=== PATIENT | female | born 1990 | race African-American/Black ===

== ENCOUNTER 2017-04-28 17:46 | Emergency (ER) | payer MEDICAID ==
[~2017-04-28] VITALS: Ht 154.9 cm; Wt 59.9 kg
[~2017-04-28 17:46] MED LIST: PREN-385 PO
[2017-04-28 18:05] VITALS: BP 115/78
--- NOTE | 2017-04-28 18:12 | NUR ---
Patient to bed 01.
--- NOTE | 2017-04-28 18:20 | NUR ---
PT PRESENTS TO ER FOR EVALUATION OF VAGINAL BLEEDING DURING . LMP 02/26/17, EDC 12/03/17; DENIES N/V/D; SKIN IS PINK/WARM/DRY; AAOX4 WITH EVEN AND STEADY GAIT; LUNGS CLEAR BL; HR EVEN AND REGULAR; PT DENIES ANY FEVER, CP, SOB, OR COUGH AT THIS TIME; PATIENT STATES PAIN OF 0/10 AT THIS TIME; VSS; PATIENT POSITIONED FOR COMFORT; HOB ELEVATED; BEDRAILS UP X2; BED DOWN. ER MD MADE AWARE OF PT STATUS.
[2017-04-28 18:52] LABS: APPEARANCE,URINE CLEAR (CLEAR); BILIRUBIN,URINE NEGATIVE (NEGATIVE); BLOOD, URINE NEGATIVE (NEGATIVE); COLOR,URINE YELLOW (YELLOW); LEUKOCYTE ESTERASE ,URINE NEGATIVE (NEGATIVE); NITRITE, URINE NEGATIVE (NEGATIVE); PH,URINE 6.5 (5.0-9.0); UGLUCOSE NEGATIVE (NEGATIVE)
[2017-04-28 18:59] LABS: ANION GAP 9.7 (8-16); CARBON DIOXIDE 29.6 mmol/L (21-32); CREATININE 0.8 mg/dL (0.6-1.3); POTASSIUM 3.3 mmol/L (3.5-5.1)
[2017-04-28 19:04] LABS: ALBUMIN 3.8 g/dL (3.4-5.0); BASOPHILS # (AUTO) 0.2 K/uL (0.00-0.22); EOSINOPHILS # (AUTO) 0.1 K/uL (0-0.4); HEMATOCRIT 37.5 % (36-48); HEMOGLOBIN 12.4 g/dL (12.0-16.0); LYMPHOCYTES # (AUTO) 1.3 K/uL (2.5-16.5); MEAN CORPUSCULAR HEMOGLOBIN 32 pg (27-31); MEAN CORPUSCULAR HGB CONC 33 g/dL (33-37); MEAN CORPUSCULAR VOLUME 96 fL (80-94); MONOCYTES # (AUTO) 0.4 K/uL (0.8-1.0); NEUTROPHILS # (AUTO) 2.9 K/uL (1.8-7.7); PLATELET COUNT (AUTO) 142 K/uL (140-450); RED BLOOD CELL COUNT(AUTO) 3.89 MIL/uL (4.20-5.40); RED CELL DISTRIBUTION WIDTH 12.5 % (11.6-13.7); TOTAL BILIRUBIN 0.3 mg/dL (0.0-1.0); WHITE BLOOD COUNT (AUTO) 4.9 K/uL (4.8-10.8)
--- NOTE | 2017-04-28 19:09 | NUR ---
Patient being evaluated by Dr. Grajeda at bedside.
[2017-04-28] MEDS ORDERED: ACETAMINOPHEN EXTRA STRENGTH 500 MG TAB PO ONE (19:45)
--- NOTE | 2017-04-28 20:10 | NUR ---
Patient discharged with v/s stable. Written and verbal after care instructions given and explained. Patient alert, oriented and verbalized understanding of instructions. Ambulatory with steady gait. All questions addressed prior to discharge. ID band removed. Patient advised to follow up with PMD. Rx of acetaminophen 500mg, [facility] and DHA given. Patient educated on indication of medication including possible reaction and side effects. Opportunity to ask questions provided and answered.
[2017-04-28 20:12] VITALS: BP 115/78
== END 2017-04-28 20:10 | disposition home or self-care (01) ==
LOC: MED 17:46
DX: O20.0 Threatened abortion (principal); J45.909 Unspecified asthma, uncomplicated; Z79.899 Other long term (current) drug therapy; Z88.1 Allergy status to other antibiotic agents
CPT/HCPCS: 36415; 76801; 80053; 81003; 84702; 85025; 86900; 86901; 99285; Q0092

== ENCOUNTER 2017-09-17 23:06 | Observation (INO) | payer MEDICAID ==
[~2017-09-17] VITALS: Ht 152.4 cm; Wt 68.5 kg
[2017-09-17] MEDS ORDERED: NALBUPHINE 10 MG/ML AMP IM PRN (23:35)
[2017-09-18] MEDS ORDERED: NALBUPHINE HYDROCHLORIDE 10 MG/ML VIAL ONE (00:04)
[2017-09-18 00:35] VITALS: BP 112/76
== END 2017-09-18 08:20 | disposition home or self-care (01) ==
LOC: MLD 23:06
PROVIDERS: ADMIT Obstetrics & Gynecology; ATTEND Obstetrics & Gynecology
DX: O99.89 Other specified diseases and conditions complicating pregnancy, childbirth and the puerperium (principal); M54.9 Dorsalgia, unspecified; Z3A.27 27 weeks gestation of pregnancy
CPT/HCPCS: 81000; 96372; G0378; J2300

== ENCOUNTER 2020-03-28 16:50 | Emergency (ER) | payer MEDICAID ==
[~2020-03-28] VITALS: Ht 152.4 cm; Wt 64.0 kg
[2020-03-28 16:54] VITALS: BP 124/64
--- NOTE | 2020-03-28 17:04 | NUR ---
PT TAKEN TO BED 3.
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
--- NOTE | 2020-03-28 17:34 | NUR ---
Ultrasound at bedside.
--- NOTE | 2020-03-28 18:30 | NUR ---
PT LEFT WITHOUT SIGNING DISCHARGE PAPERS AND TAKING PRESCRIPTION. PT WAS PRESCRIBED MOTRIN FOR ABD CRAMP PAIN. US RESULTS UNREMARKABLE. VSS UPON DISCHARGE
[2020-03-28 18:44] VITALS: BP 125/66
== END 2020-03-28 18:30 | disposition home or self-care (01) ==
LOC: MED 16:50
DX: R10.2 Pelvic and perineal pain (principal); R03.0 Elevated blood-pressure reading, without diagnosis of hypertension; F12.90 Cannabis use, unspecified, uncomplicated; J45.909 Unspecified asthma, uncomplicated; Z88.1 Allergy status to other antibiotic agents; Z88.6 Allergy status to analgesic agent; Z79.899 Other long term (current) drug therapy
CPT/HCPCS: 76856; 99284; Q0092

== ENCOUNTER 2020-04-19 18:21 | Emergency (ER) | payer MEDICAID ==
[~2020-04-19] VITALS: Ht 287 cm; Wt 65.3 kg
[2020-04-19 18:35] VITALS: BP 106/70
--- NOTE | 2020-04-19 18:35 | NUR ---
PT TAKEN TO CHAIR Celena.
--- NOTE | 2020-04-19 18:41 | NUR ---
Patient ambulated to bed 11 with family. RN evaluating patient at bedside.
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
[2020-04-19] MEDS ORDERED: KETOROLAC 30 MG/ML VIAL IM ONE (18:55)
--- NOTE | 2020-04-19 19:12 | NUR ---
Patient discharged with v/s stable. Written and verbal after care instructions given and explained. Patient alert, oriented and verbalized understanding of instructions. Ambulatory with steady gait. All questions addressed prior to discharge. ID band removed. Patient advised to follow up with PMD. Rx of naproxen 375mg PO BID with meals given. Patient educated on indication of medication including possible reaction and side effects. Opportunity to ask questions provided and answered.
== END 2020-04-19 19:12 | disposition home or self-care (01) ==
LOC: MED 18:21
DX: S39.012A Strain of muscle, fascia and tendon of lower back, initial encounter (principal); J45.909 Unspecified asthma, uncomplicated; Z88.1 Allergy status to other antibiotic agents; Z88.6 Allergy status to analgesic agent; Z79.899 Other long term (current) drug therapy; V89.2XXA Person injured in unspecified motor-vehicle accident, traffic, initial encounter; Y93.89 Activity, other specified; Y92.89 Other specified places as the place of occurrence of the external cause; Y99.8 Other external cause status
CPT/HCPCS: 96372; 99283; J1885

== ENCOUNTER 2023-01-08 12:06 | Emergency (ER) | payer MEDICAID ==
[~2023-01-08] VITALS: Ht 154.9 cm; Wt 61.3 kg
[2023-01-08 12:14] VITALS: BP 110/71; PULSE 61; RESP 20; TEMP 97.9; O2SAT 99
--- NOTE | 2023-01-08 12:45 | NUR ---
32YO F C/O CLUMPY VAGINAL DISCHARGE AND IRRITATION X 3DAYS. DENIES FEVER, N,V,D, CHILLS, DYSURIA, HEMATURIA, FLANK PAIN, ABD PAIN. AOX4, SKIN INTACT/DRY, AMBULATORY. SAFETY MAINTAINED, CALLL LIGHT IN REACH. HX: DENIES ALLERGY TO AMOXICILLIN, NALBUPHINE
--- NOTE | 2023-01-08 13:48 | NUR ---
STAND BY FOR PELVIC EXAM BY TINA CASTILLO.
[2023-01-08] MEDS ORDERED: CLOT45CR VG (14:08)
[2023-01-08 14:19] VITALS: BP 106/74; PULSE 71; RESP 17; O2SAT 98
--- NOTE | 2023-01-08 14:19 | NUR ---
Patient discharged with v/s stable. Written and verbal after care instructions given and explained. Patient verbalized understanding. Ambulatory with steady gait. All questions addressed prior to discharge. Advised to follow up with PMD.
== END 2023-01-08 14:19 | disposition home or self-care (01) ==
LOC: MED 12:06
DX: N76.0 Acute vaginitis (principal); J45.909 Unspecified asthma, uncomplicated; Z11.3 Encounter for screening for infections with a predominantly sexual mode of transmission; Z88.1 Allergy status to other antibiotic agents; Z88.8 Allergy status to other drugs, medicaments and biological substances; Z79.899 Other long term (current) drug therapy
CPT/HCPCS: 81002; 81025; 87210; 87491; 99283; 99284

== ENCOUNTER 2023-07-29 10:16 | Emergency (ER) | payer MEDICAID ==
[~2023-07-29] VITALS: Ht 154.9 cm; Wt 62.1 kg
[~2023-07-29 10:16] MED LIST changes: +CLOT45CR VG
[2023-07-29 10:24] VITALS: BP 114/72; PULSE 65; RESP 18; TEMP 98.3; O2SAT 96
[2023-07-29] MEDS ORDERED: NAPR-54 PO (11:33)
[2023-07-29] MEDS: KETOROLAC 30 MG/ML VIAL IM ONE (11:49)
== END 2023-07-29 11:50 | disposition home or self-care (01) ==
LOC: MED 10:16
DX: R51.9 Headache, unspecified (principal); J45.909 Unspecified asthma, uncomplicated; Z79.899 Other long term (current) drug therapy; Z88.0 Allergy status to penicillin; Z88.8 Allergy status to other drugs, medicaments and biological substances
CPT/HCPCS: 70450; 99284